=== PATIENT | male | born 1985 | race Caucasian/White ===

== ENCOUNTER 2023-06-01 03:15 | Emergency (ER) | payer OTHER ==
[~2023-06-01] VITALS: Ht 182.9 cm; Wt 61.7 kg
[2023-06-01 05:05] VITALS: BP 146/72; PULSE 78; RESP 18; O2SAT 99
== END 2023-06-02 05:44 | disposition home or self-care (01) ==
LOC: EDH 03:15 → EDBD 03:15 → EDH 06-02 05:44
DX: S90.821A Blister (nonthermal), right foot, initial encounter (principal); Z98.890 Other specified postprocedural states; Z88.0 Allergy status to penicillin; X58.XXXA Exposure to other specified factors, initial encounter; Y93.89 Activity, other specified; Y92.89 Other specified places as the place of occurrence of the external cause; Y99.8 Other external cause status

== ENCOUNTER 2023-09-24 17:10 | Emergency (ER) | payer OTHER ==
[2023-09-24 17:30] VITALS: BP 127/83; PULSE 80; RESP 18
== END 2023-09-24 19:35 | disposition left against medical advice (07) ==
LOC: EDH 17:10
DX: M54.50 Low back pain, unspecified (principal); Z53.21 Procedure and treatment not carried out due to patient leaving prior to being seen by health care provider